=== PATIENT | male | born 1955 | race Caucasian/White ===

== ENCOUNTER 2017-11-01 08:20 | Emergency (ER) | payer MEDICARE, OTHER ==
[~2017-11-01] VITALS: Ht 170.2 cm; Wt 80.0 kg
[2017-11-01] MEDS ORDERED: albuterol 2.5 MG/3 ML nebule NEB ONE (08:50)
[2017-11-01] MEDS ORDERED: normal saline 1000ML IV soln IVB ONE ×2 (08:50→10:10)
[2017-11-01 09:39] LABS: ALANINE AMINOTRANSFERASE 77 U/L (12-78); ALBUMIN 3.1 G/DL (3.4-5.0); ALBUMIN/GLOBULIN RATIO 0.7 (1.1-1.5); ALKALINE PHOSPHATASE 133 IU/L (46-116); ANION GAP 9 (8-16); ASPARTATE AMINO TRANSFERASE 43 U/L (10-37); BILIRUBIN,TOTAL 0.7 MG/DL (0.1-1.0); BLOOD UREA NITROGEN 9 MG/DL (7-18); BUN/CREATININE RATIO 12.9 (5.4-32.0); CALCIUM 9.1 MG/DL (8.5-10.1); CHLORIDE 100 MMOL/L (99-107); GLUCOSE 158 MG/DL (70-104); POTASSIUM 3.2 MMOL/L (3.5-5.1); SODIUM 137 MMOL/L (135-145); TOTAL CARBON DIOXIDE 28.3 MMOL/L (24-32); TOTAL PROTEIN 7.4 G/DL (6.4-8.2); eGFR > 90 ML/MIN
[2017-11-01 09:45] LABS: BASOPHILS % (AUTO) 0.1 % (0-1); EOSINOPHILS # (AUTO) 0.1 X10'3 (0-0.9); EOSINOPHILS % (AUTO) 1.4 % (0-6); HEMATOCRIT 35.7 % (42.0-52.0); HEMOGLOBIN 12.7 g/dl (14.0-17.9); LYMPHOCYTES # (AUTO) 1.7 X10'3 (1.1-4.8); MEAN CORPUSCULAR HEMOGLOBIN 32.8 PG (27.0-31.0); MEAN CORPUSCULAR HGB CONC 35.4 % (33.0-36.5); MEAN CORPUSCULAR VOLUME 92.5 FL (78-98); MEAN PLATELET VOLUME 7.6 FL (7.4-10.4); MONOCYTES # (AUTO) 0.9 X10'3 (0-0.9); NEUTROPHILS # (AUTO) 6.9 X10'3 (1.8-7.7); NEUTROPHILS % (AUTO) 71.5 % (42-75); PLATELET COUNT 230 X10'3 (140-440); RED BLOOD COUNT 3.86 X10'6 (4.70-6.10); RED CELL DISTRIBUTION WIDTH 14.1 % (11.5-14.5); WHITE BLOOD COUNT 9.7 X10'3 (4.5-11.0)
[2017-11-01] MEDS ORDERED: iohexol 350MG/ML 100ml bottle IV ONE (10:29)
[2017-11-01] MEDS ORDERED: HYDROcodone/acetaminophen 10/325mg tab PO ONE (11:45)
[2017-11-01] MEDS ORDERED: potassium Cl 20 mEq SR tablet PO ONE (11:50)
[2017-11-01] MEDS ORDERED: levoFLOXACIN 250mg tablet PO ONE (11:50)
[2017-11-01] MEDS ORDERED: LEVO750T21 PO (11:56)
[2017-11-01] MEDS ORDERED: ALBU8HFA PO (11:56)
[2017-11-01 12:10] VITALS: BP 157/90
== END 2017-11-01 12:17 | disposition home or self-care (01) ==
LOC: ER 08:21
DX: J18.9 Pneumonia, unspecified organism (principal); R91.1 Solitary pulmonary nodule; G89.29 Other chronic pain; Z87.442 Personal history of urinary calculi; Z98.890 Other specified postprocedural states
CPT/HCPCS: 36415; 71046; 71275; 80053; 83605; 85025; 87040; 87502; 87503; 93005; 94640; 94760; 96360; 96361; 99285; J7030; Q9967

== ENCOUNTER 2018-10-05 17:11 | Emergency (ER) | payer MEDICARE, OTHER ==
[~2018-10-05] VITALS: Ht 170.2 cm; Wt 80.9 kg
[2018-10-05 19:01] VITALS: BP 157/107
[2018-10-05] MEDS ORDERED: AZIT500T PO (19:08)
== END 2018-10-05 19:29 | disposition home or self-care (01) ==
LOC: ER 17:12
DX: J06.9 Acute upper respiratory infection, unspecified (principal); G89.29 Other chronic pain; Z87.442 Personal history of urinary calculi
CPT/HCPCS: 99283